=== PATIENT | female | born 1945 | race Caucasian/White ===

== ENCOUNTER → 2016-04-30 | Outpatient (CLI) | payer BC ==
[2016-04-30 11:40] LABS: BASOPHILS # (AUTO) 0.09 10*3/UL; EOSINOPHILS % (AUTO) 3.5 % (0-8); IMM GRAN % (AUTO) 0.1 % (0-5); IMM GRAN# (AUTO) 0.01 10*3/UL; LYMPHOCYTES % (AUTO) 33.8 % (10-50); MEAN CORPUSCULAR HEMOGLOBIN 30.1 PG (27-31); MEAN CORPUSCULAR HGB CONC 33.3 g/dL (33-37); MEAN PLATELET VOLUME 10.2 FL (7.4-12.2); MONOCYTES # (AUTO) 0.62 10*3/UL (0.3-0.8); MONOCYTES % (AUTO) 6.8 % (5-15); NEUTROPHILS # (AUTO) 5.03 10*3/UL; NEUTROPHILS % (AUTO) 54.8 % (50-80); RDW COEFFICIENT OF VARIATION 13.8 % (11.5-14.5); RED BLOOD COUNT 5.32 10^6/uL (4.20-5.40); WHITE BLOOD COUNT 9.17 10^3/uL (4.8-10.8)
[2016-04-30 11:43] LABS: BILIRUBIN,URINE NEGATIVE (NEG); CLARITY,URINE CLEAR (CLEAR); GLUCOSE, URINE (UA) NEGATIVE (NEG); LEUKOCYTE ESTERASE ,URINE NEGATIVE (NEG); NITRATE,URINE NEGATIVE (NEG); OCCULT BLOOD,URINE NEGATIVE (NEG); PROTEIN,URINE NEGATIVE (NEG); UROBILINOGEN,URINE 0.2 mg/dL (0.2)
[2016-04-30 11:47] LABS: BILIRUBIN,TOTAL 0.6 mg/dL (0.3-1.2); CALCIUM 10.1 mg/dL (8.7-10.7); LDL CHOLESTEROL,CALCULATED 135.6 mg/dL; POTASSIUM 4.2 meq/L (3.8-5.2); TOTAL PROTEIN 7.4 g/dL (6.1-8.0)
[2016-04-30 11:48] LABS: PLATELET MORPHOLOGY COMMENT NORMAL MORPHOLOGY (NORM)
[2016-04-30 12:21] LABS: RBC,URINE 0 /hpf; SQUAMOUS EPITHELIAL CELL,UR RARE; URINE SAMPLE TYPE CLEAN CATCH URINE; WBC,URINE 0
== END ==
LOC: MOB LAB 09:48
DX: E03.9 Hypothyroidism, unspecified (principal); I10 Essential (primary) hypertension; M85.80 Other specified disorders of bone density and structure, unspecified site; Z13.6 Encounter for screening for cardiovascular disorders
CPT/HCPCS: 36415; 80053; 80061; 81001; 82306; 84443; 85025

== ENCOUNTER 2016-05-17 14:31 | Emergency (ER) | payer BC ==
[2016-05-17] MEDS ORDERED: IPRATROPIUM/ALBUTEROL SULFATE 3 ML NEB NEB ONE (14:49)
[2016-05-17] MEDS ORDERED: NORMAL SALINE 10 ML SYRINGE FLUSH IVP PRN (14:49)
[2016-05-17 14:55] VITALS: RESP 14; TEMP 97.3
[2016-05-17 14:56] LABS: BASOPHILS # (AUTO) 0.16 10*3/UL; BASOPHILS % (AUTO) 1.4 % (0-1); EOSINOPHILS # (AUTO) 0.54 10*3/UL; EOSINOPHILS % (AUTO) 4.7 % (0-8); HEMATOCRIT 48.9 % (37.0-47.0); HEMOGLOBIN 16.3 g/dL (12.0-16.0); LYMPHOCYTES # (AUTO) 4.24 10*3/uL; MEAN CORPUSCULAR HEMOGLOBIN 30.1 PG (27-31); MEAN CORPUSCULAR HGB CONC 33.3 g/dL (33-37); MEAN CORPUSCULAR VOLUME 90.2 FL (81-99); MEAN PLATELET VOLUME 9.5 FL (7.4-12.2); MONOCYTES # (AUTO) 0.85 10*3/UL (0.3-0.8); MONOCYTES % (AUTO) 7.3 % (5-15); NEUTROPHILS # (AUTO) 5.73 10*3/UL; NEUTROPHILS % (AUTO) 49.6 % (50-80); RED BLOOD COUNT 5.42 10^6/uL (4.20-5.40)
--- NOTE | 2016-05-17 14:56 | PDOC ---
Dyspnea HPI - General Chief Complaint: Dyspnea Stated Complaint: HARD TO BREATH Date Seen by Provider: 05/17/16 Time Seen by Provider: 14:45 Source: POSITIVE: Patient Exam Limitations: POSITIVE: No limitations Treatment Prior to Arrival: REPORTS: None Nurse's Notes Reviewed & Considered: Yes - History of Present Illness Initial Comments: The patient is a 70-year-old female who presents to the emergency department with increased shortness of breath. She does have a history of asthma. She reports that intermittently over the past several weeks she's been having increased wheezing and shortness of breath. Her physician Dr. Ferreira tried her on some form of an inhaler however she thought this was making her sick and it was discontinued. He also gave her samples of delay or which also made her sick. She has been using her albuterol inhaler which she states helps once in a while. She states that the shortness of breath and wheezing seem to occur at random times and are not necessarily worse with activity. She does have some associated tightness in her chest however denies chest pain. She denies any pain or swelling in her extremities. She does have associated occasional cough and hoarseness. She denies any congestion. Her throat feels scratchy. She denies any current fevers or chills. She does have a history of prior left lung lobectomy secondary to a blood clot after a hysterectomy in her 30s. She has not had any blood clots otherwise and does not take any blood thinner medications currently. - Patient Home Medications Home Medications: Home Medications Ascorbic Acid [Vitamin C] 1 tab PO BID #60 10/08/12 Calcium Carbonate/Vitamin D3 [Calcium 600 + Vit D 400 Tablet] 1 each PO DAILY # 30 10/08/12 Multivitamin [Multivitamins] 1 each PO DAILY #30 10/08/12 Albuterol/Ipratrop Neb Soln [Duoneb Neb Soln] 1 inh PO 2-3XD PRN #90 inh Cetirizine HCl [Zyrtec] 1 cap PO QD PRN #30 cap 10/04/14 Cholecalciferol (Vitamin D3) [Vitamin D] 1 cap PO QD #30 cap 10/04/14 Diphenhydramine HCl [Benadryl] 1 cap PO QD PRN #30 cap 10/04/14 Epinephrine 0.3 mg IM ONCE PRN #1 ml 10/04/14 Triamcinolone Acetonide [Nasacort] 2 spr MARIAN QD PRN #1 spray 10/04/14 Albuterol Sulfate [Proair Hfa] 1 - 2 puff INH Q4-6H PRN #6 puff 10/10/14 L.acid/L.casei/B.bif/B.loren/Fos [Probiotic Blend Capsule] 1 each PO DAILY cap Ezetimibe [Zetia] 1 tab PO QD #90 tab 06/26/15 Estrogens, Conj Vaginal Cream [Premarin Vaginal Cream] 0.5 gm VAGINAL 3XW #3 tube 01/02/16 Cyclobenzaprine HCl 1 tab PO QD PRN #90 tab 03/03/16 Hydrochlorothiazide 1 tab PO QD #90 tab 03/03/16 Levothyroxine Sodium [Synthroid] 1 tab PO QD #90 tab 03/03/16 Fluticasone/Vilanterol [Breo Ellipta 200-25 Mcg Inh] Sample #2 04/30/16 Mometasone/Formoterol [Dulera 100 Mcg/5 Mcg Inhaler] Sample #2 05/12/16 Azithromycin [Zithromax] 250 mg PO DAILY #6 tab 05/17/16 predniSONE Tab [Deltasone Tab] 10 mg PO DAILY #21 tab 05/17/16 - Patient Allergies Allergies/Adverse Reactions: Allergies Allergy/AdvReac Type Severity Reaction Status Date / Time aspirin [Aspirin] Allergy Intermediate Anaphylaxis Verified 05/17/16 14:43 codeine Allergy Intermediate VOMITING Verified 05/17/16 14:43 Aidagcu-Pnh-Ddh Reductase AdvReac Intermediate NOT Verified 05/17/16 14:43 Inhibitor APPLICABLE Past Medical History - heen HEENT History: Cataracts, Hard of Hearing, Dentures/Partials Cardiovascular History: Hypertension, Hyperlipidemia Respiratory History: Asthma, Pulmonary Embolism Additional Respiratory History: IN 1976 DEVELOPED A PE AFTER HYST/ ENDED UP GETTING LEFT LOWER LOBECTOMY/ SHE DOES NOT HAVE ANY SOB NOTED. SHE STATES THAT WITH HEAVY EXERTION SHE WILL GET SLIGHT SOB. AFTER DISCUSSION WITH DIPIKA, CXR AND PFT NOT NEEDED Gastrointestinal History:  Additional Gastrointestinal History: HX COLON POLYPS Genitourinary History: Denies History Endocrine History: Hypothyroidism Musculoskeletal History: Arthritis, Osteoporosis, Back Pain, Joint Pain Prosthesis or Implant: Yes (R KNEE) Neurological History: Denies History Blood Disorders: Denies History Psychiatric History: Denies History History of Sexually Transmitted Diseases: No Cancer History: Denies History History of MDRO: No History of Other Communicable Diseases: No Alcohol Use: Occasionally Substance Use Type: None Previous Surgical History: Yes Type / Date of Surgery: HYST/ LEFT LOWER LOBECTOMY AFTER PE/ TONSILLECTOMY/ D&C X 3/ MULTIPLE TOE SX BILAT FEET/ OOPHERECTOMY/ BILAT CATARACTS/ COLONOSCOPIES 1999, 2001,2003,2007/ BREAST BIOPSIES 90 AND 97 Anesthesia Reactions: No Malignant Hyperthermia: No Significant Family History: Heart disease, Cancer Past Medical History Reviewed: Reviewed - No Changes ROS - Limitations ROS Limitations: No Limitations Constitution: DENIES: Chills, Fever Cardiovascular: DENIES: Chest Pain (She does get tightness in her chest however denies pain), Heart Palpitations Respiratory: REPORTS: Cough Non Productive, Shortness Of Breath, Wheezing. DENIES: Hurts To Breathe Neurological: REPORTS: Denies Neuro Symptoms Gastrointestinal: REPORTS: Denies GI Symptoms Endocrine: REPORTS: Fatigue Musculoskeletal: DENIES: Denies MS Symptoms, Calf Pain, Lower Extremity Swelling Eyes: REPORTS: Denies Symptoms ENT: REPORTS: Sore Throat (Scratchy). DENIES: Congestion Skin: DENIES: Rash Dyspnea Physical Exam - General Appearance General Appearance: REPORTS: Alert, Cooperative, No Acute Distress - HEENT HEENT: POSITIVE: Head Inspection Nml, Eyes Inspection Nml, Ears Inspection Nml, Pharynx Inspect. Nml - Neck Neck: REPORTS: Normal Inspection. DENIES: JVD Present, Lymphadenopathy - Respiratory Respiratory: REPORTS: No Respiratory Distress, Breath Sounds Normal, Speaks Full Sentences, Other (She does have an occasional expiratory wheeze and a wheezy cough) - Cardiovascular Cardiovascular: REPORTS: Regular Rate and Rhythm, Heart Sounds Normal - Abdomen Abdomen: Soft: (All Quadrants), No Distention: (All Quadrants) - Skin Skin: REPORTS: Intact, No Rash - Extremities Extremity: Normal ROM: (All Extremities), Normal Inspection: (All Extremities) - Neurological / Psychological Neurological: POSITIVE: Oriented X3, Motor Normal, Sensation Normal Dyspnea Progress - Results Reviewed by me Xrays/CTs/US Reviewed by me: Yes Discussed with Radiologist: Yes Radiology Findings: Chest x-ray shows no acute findings per radiologist. CT PE protocol reveals some linear atelectasis in the lung bases as well as a groundglass appearing density 1 cm area in the left upper lung for which he recommended follow-up. Lab Results Reviewed: Yes Lab Results:: Laboratory Results 05/17/16 Range/Units 14:45 WBC 11.57 H (4.8-10.8) 10^3/uL RBC 5.42 H (4.20-5.40) 10^6/uL Hgb 16.3 H (12.0-16.0) g/dL Hct 48.9 H (37.0-47.0) % MCV 90.2 (81-99) FL MCH 30.1 (27-31) PG MCHC 33.3 (33-37) g/dL RDW Std Deviation 45.6 (39-50) fL RDW Coeff of Vincenzo 13.9 (11.5-14.5) % Plt Count 240 (140-350) 10*3/uL MPV 9.5 (7.4-12.2) FL Immature Gran % (Auto) 0.4 (0-5) % Neut % (Auto) 49.6 L (50-80) % Lymph % (Auto) 36.6 (10-50) % Kane % (Auto) 7.3 (5-15) % Eos % (Auto) 4.7 (0-8) % Baso % (Auto) 1.4 H (0-1) % Immature Gran # (Auto) 0.05 10*3/UL Neut # (Auto) 5.73 10*3/UL Lymph # (Auto) 4.24 10*3/uL Kane # (Auto) 0.85 H (0.3-0.8) 10*3/UL Eos # (Auto) 0.54 10*3/UL Baso # (Auto) 0.16 10*3/UL WBC Morphology Comment Normal morphology (NORM) Plt Morphology Comment Normal morphology (NORM) RBC Morph Comment Normal morphology (NORM) D-Dimer 2.45 H (0.00-0.59) mg/L Sodium 138 (135-145) meq/L Potassium 4.1 (3.8-5.2) meq/L Chloride 101 (98-112) meq/L Carbon Dioxide 26 (23-33) meq/L Anion Gap 11 (5-20) BUN 19 (7-22) mg/dL Creatinine 0.9 (0.50-1.20) mg/dL Estimated GFR > 60 (>60 ml/min/1.73m(2)) BUN/Creatinine Ratio 21.11 H (6-20) Glucose 99 (78-110) mg/dL Calculated Osmolality 287.0 (267-292) mOsm/kg Calcium 9.7 (8.7-10.7) mg/dL Magnesium 2.1 (1.6-2.4) mg/dL Total Bilirubin 0.5 (0.3-1.2) mg/dL AST 36 (8-39) IU/L ALT 37 (9-52) IU/L Alkaline Phosphatase 96 (38-126) IU/L Troponin I < 0.012 (< 0.040) ng/mL C-Reactive Protein 1.0 H (0.0-0.9) mg/dL NT-Pro-B Natriuret Pep 79.9 (0-125) PG/ML Total Protein 8.0 (6.1-8.0) g/dL Albumin 4.6 (3.5-4.8) g/dL Globulin 3.4 (2.50-4.10) g/dL Albumin/Globulin Ratio 1.30 (1.3-2.0) mg/g EKG Interpreted/Reviewed By Me:: Yes EKG Interpretation:: POSITIVE: Normal Sinus Rhythm, Normal Rate, Normal Intervals, Normal [place], Normal QRS, Normal ST/T - Patient's Progress MDM / ED Course: The patient did receive a DuoNeb shortly after arrival. She stated that she thought she did get some relief from the DuoNeb. Her lab work is all essentially unremarkable except for a slightly elevated white count and an elevated d-dimer at 2.5. Her chest x-ray showed no obvious pneumonia. CT PE protocol revealed no evidence of PE with the groundglass appearing density in the left upper lobe and some linear atelectasis in the lung bases per radiologist. Her oxygen remained above 90% on room air here in the emergency department. She was started on Zithromax 500 mg today followed by 250 mg daily for 4 days for treatment of bronchitis. In addition she was started on prednisone 40 mg daily for 3 days, 20 mg daily for 3 days and 10 mg daily for 3 days for treatment of asthma exacerbation. She will continue albuterol as needed. She is to return to the emergency room if increased shortness of breath , fever or productive cough, any worsening or change in symptoms. She is advised follow-up with primary care in 3-5 days. - Consult Counseled: POSITIVE: Patient, Family, RE: Lab Results, RE: Radiology Results, RE : DX, RE: Need for F/U Patient Care Time - Estimated PCT Patient Care Time (In Minutes): 35 Vital Signs - VS Reviewed Vital Signs Reviewed: Yes Discharge Clinical Impression: Bronchitis, Asthma Discharge Disposition: Discharged to Home Condition: Stable Prescriptions / Orders: predniSONE Tab [Deltasone Tab] 10 mg PO DAILY #21 tab Azithromycin [Zithromax] 250 mg PO DAILY #6 tab Patient Instructions Given at Discharge: Asthma (ED), Acute Bronchitis (ED) Additional Instructions: The CAT scan of your lungs did not reveal any evidence of blood clot or obvious pneumonia. There was a small 1 cm density in the left upper lobe that the radiologist recommended a 6 month follow-up on. This most likely represent some kind of scar tissue however does need follow-up. Your symptoms may be related to bronchitis or asthma exacerbation. You have been started on Zithromax 500 mg today followed by 250 mg daily for 4 days. In addition you OB started on a prednisone taper, 40 mg daily for 3 days, 20 mg daily for 3 days and 10 mg daily for 3 days. Continue albuterol inhaler or neb treatments as needed. Return to the emergency room if increased shortness of breath, worsening or change in symptoms. Recommend follow-up with Dr. Ferreira in 3-5 days. Follow Up With: BIANCA FERREIRA [Primary Care Provider] -
--- NOTE | 2016-05-17 14:56 | EKG ---
[address] [address] Measurements Intervals [place] Rate: 88 P: 39 WA: 140 QRS: 55 QRSD: 94 T: 22 QT: 365 QTc: 411 Interpretive Statements SINUS RHYTHM WITH SINUS ARRHYTHMIA Compared to ECG 09/29/2012 08:44:25 No significant changes Electronically Signed On 05-18-16 12:38:06 MDT by Toribio Baeza [email or web address]
[2016-05-17 15:06] LABS: PLATELET MORPHOLOGY COMMENT NORMAL MORPHOLOGY (NORM); RBC MORPHOLOGY COMMENT NORMAL MORPHOLOGY (NORM); WBC MORPHOLOGY COMMENT NORMAL MORPHOLOGY (NORM)
[2016-05-17 15:15] LABS: BLOOD UREA NITROGEN 19 mg/dL (7-22); BUN/CREATININE RATIO 21.11 (6-20); CALCIUM 9.7 mg/dL (8.7-10.7); EST GLOMERULAR FILTRATION > 60 (>60 ml/min/1.73m(2)); MAGNESIUM 2.1 mg/dL (1.6-2.4); SERUM ALBUMIN 4.6 g/dL (3.5-4.8)
--- NOTE | 2016-05-17 16:00 | DI ---
HISTORY: Shortness of breath, cough. FINDINGS: The heart is within normal limits with atheromatous changes of the dorsal aorta. The dallin g hinton are essentially clear. IMPRESSION: 1. No acute cardiopulmonary pathology identified.
--- NOTE | 2016-05-17 16:31 | DI ---
HISTORY: Shortness of breath with elevated D-dimer. COMPARISON: None. TECHNIQUE: Contiguous transaxial computed tomographic images were obtained of the [facility] with IV contrast. Coronal and sagittal reformat images were performed. FINDINGS: LUNGS: Clear. There is bilateral mild atelectasis and scar within the lung bases. There is a 1 cm alla und glass nodule in the left upper lobe on series 4, image 32. MEDIASTINUM: No acute pulmonary emboli or thoracic aortic dissection. There is calcified atheroscler otic disease within the coronary arteries and mild calcified atherosclerotic disease within the thora cic aorta. No mediastinal lymphadenopathy. The airway is patent. UPPER ABDOMEN: A limited evaluation of the upper abdomen was performed and is unremarkable. BONES: There is degenerative change and curvature within the thoracic spine. IMPRESSION: 1. No acute pulmonary emboli or thoracic aortic dissection. 2. There is mild atelectasis and scar within the lung bases. There is no focal consolidation. 3. There is a 1 cm ground glass nodule in the left upper lobe. Follow-up chest CT is recommended in s ix months.
== END 2016-05-17 16:47 | disposition home or self-care (01) ==
LOC: ER 14:31
DX: J02.9 Acute pharyngitis, unspecified (principal); J20.9 Acute bronchitis, unspecified; J45.909 Unspecified asthma, uncomplicated
CPT/HCPCS: 71020; 71275; 80053; 83735; 83880; 84484; 85025; 85379; 86140; 93005; 93010; 94640; 99284 ×2; J7620